=== PATIENT | male | born 1985 | race Caucasian/White ===

== ENCOUNTER 2018-04-28 20:20 | Emergency (ER) | payer OTHER ==
[~2018-04-28] VITALS: Ht 167.6 cm; Wt 81.1 kg
[2018-04-28 20:31] VITALS: BP 175/77
== END 2018-04-28 21:56 | disposition home or self-care (01) ==
LOC: ED 21:45
DX: K04.7 Periapical abscess without sinus (principal)
CPT/HCPCS: 99283

== ENCOUNTER 2019-01-15 18:05 | Emergency (ER) | payer OTHER ==
[~2019-01-15] VITALS: Ht 167.6 cm; Wt 78.5 kg
--- NOTE | 2019-01-15 18:31 | NUR ---
CONTACT WITH PT, 33 YR OLD MALE HERE WITH C/O "LEFT SIDE CHEST PRESSURE AND AT TIMES NEEDLES AND REALLY BAD CRAMPS" HAS BEEN INTERMITTENT FOR A COUPLE OF MONTHS. "TODAY WAS THE WORSE" HAS SOB WITH EPISODES. NOT ASSOCIATED WITH ACTIVITIES. PT PLACED ON MONITORS, SR PER MONITOR, AUTO BP AND PULSE OX IN PLACE.
[2019-01-15] MEDS ORDERED: GABA300C10 PO (18:37)
--- NOTE | 2019-01-15 19:13 | NUR ---
REPORT TO ANSHUL CUNNINGHAM
[2019-01-15 19:27] LABS: BASOPHILS # (AUTO) 0.03 x10^3/uL (0-0.1); BASOPHILS % (AUTO) 0 % (0-1); EOSINOPHILS # (AUTO) 0.18 x10^3/uL (0-0.4); EOSINOPHILS % (AUTO) 2 % (1-7); LYMPHOCYTES # (AUTO) 2.41 x10^3/uL (1-3.4); LYMPHOCYTES % (AUTO) 28 % (22-44); MD NO; MEAN CORPUSCULAR HEMOGLOBIN 30.2 pg (27.5-34.5); MEAN CORPUSCULAR HGB CONC 34.3 g/dL (33.2-36.2); MEAN CORPUSCULAR VOLUME 88.1 fL (81-97); MEAN PLATELET VOLUME 8.5 fL (7.4-10.4); MONOCYTES # (AUTO) 0.56 x10^3/uL (0.2-0.8); MONOCYTES % (AUTO) 7 % (2-9); NEUTROPHILS # (AUTO) 5.37 x10^3/uL (1.8-6.8); NEUTROPHILS % (AUTO) 63 % (42-75); PLATELET COUNT 300 x10^3/uL (130-400); RED BLOOD COUNT 5.11 x10^6/uL (4.38-5.82); RED CELL DISTRIBUTION WIDTH 12.8 % (9.4-14.8)
[2019-01-15 19:39] LABS: ALANINE AMINOTRANSFERASE 49 U/L (12-78); ALBUMIN 3.9 g/dL (3.4-5.0); ANION GAP 4 mmol/L (5-15); CALCIUM 8.7 mg/dL (8.5-10.1); CHLORIDE 110 mmol/L (98-107); CREATININE 1.14 mg/dL (0.7-1.3)
[2019-01-15 19:43] LABS: ALKALINE PHOSPHATASE 88 U/L (45-117); BILIRUBIN,TOTAL 0.2 mg/dL (0.2-1.0); TOTAL PROTEIN 6.6 g/dL (6.4-8.2); TROPONIN I < 0.015 ng/mL (0.000-0.045)
[2019-01-15 20:18] VITALS: BP 128/62
--- NOTE | 2019-01-15 20:24 | NUR ---
No immediate needs from pt. Awaiting results.
== END 2019-01-15 21:00 | disposition home or self-care (01) ==
LOC: ED 18:51
DX: R07.89 Other chest pain (principal); R42 Dizziness and giddiness; F17.210 Nicotine dependence, cigarettes, uncomplicated
CPT/HCPCS: 36415; 71045; 80053; 84484; 85025; 93005; 99284

== ENCOUNTER 2019-01-20 08:26 | Outpatient (CLI) | payer OTHER ==
[~2019-01-20 08:26] MED LIST: GABA300C10 PO
== END 2019-01-20 23:59 | disposition home or self-care (01) ==
LOC: CARD 08:26
PROVIDERS: ATTEND Family Medicine
DX: R07.9 Chest pain, unspecified (principal)
CPT/HCPCS: 93017

== ENCOUNTER 2019-03-11 17:14 | Emergency (ER) | payer OTHER ==
[~2019-03-11] VITALS: Ht 167.6 cm; Wt 80.0 kg
[2019-03-11] MEDS ORDERED: MORPHINE SULFATE 4 MG/ML, 1ML ONE (17:53)
[2019-03-11] MEDS ORDERED: ONDANSETRON 2MG/ML, 2ML ONE (17:54)
[2019-03-11] MEDS ORDERED: SODIUM CHLORIDE FLUSH 10ML SYR IVF ONE (18:00)
[2019-03-11] MEDS ORDERED: ONDANSETRON 2MG/ML, 2ML IVPush ONE (18:00)
[2019-03-11] MEDS ORDERED: MORPHINE SULFATE 4 MG/ML, 1ML IVPush PRN (18:00)
--- NOTE | 2019-03-11 18:17 | NUR ---
REPORT FROM OCTAVIO SCHAEFER. ASSUMED CARE OF PATIENT AT THIS TIME.
[2019-03-11] MEDS ORDERED: LIDOCAINE-MPF 1%, 5ML ONE ×2 (18:39→18:41)
--- NOTE | 2019-03-11 18:58 | NUR ---
MD AT BEDSIDE, KIM PROVIDED. PATIENT SITTING IN ESE JOSEPH. FAMILY AT BEDSIDE.
[2019-03-11] MEDS ORDERED: LIDOCAINE-MPF 2% ,5ML SQ ONE (19:00)
--- NOTE | 2019-03-11 19:52 | NUR ---
NAIL OUT, NEW ORDERS FOR AN XRAY. PATIENT SITTING IN GURNEY SPEAKING WITH FAMILY AT BEDSIDE, [id number].
--- NOTE | 2019-03-11 20:11 | NUR ---
PATIENT AMB WITH STEADY GAIT TO BATHROOM, PATIENT BACK TO BED, NADN.
--- NOTE | 2019-03-11 20:15 | NUR ---
EMT AT BEDSIDE FOR WOUND IRRIGATION. VS UPDATED IN CHART.
[2019-03-11 21:36] VITALS: BP 119/74
== END 2019-03-11 21:38 | disposition home or self-care (01) ==
LOC: ED 18:44
DX: S61.231A Puncture wound without foreign body of left index finger without damage to nail, initial encounter (principal); F17.200 Nicotine dependence, unspecified, uncomplicated; X58.XXXA Exposure to other specified factors, initial encounter; Y93.89 Activity, other specified; Y92.89 Other specified places as the place of occurrence of the external cause; Y99.8 Other external cause status
CPT/HCPCS: 12041; 73130; 73140; 96374; 96375; 99284; J2270; J2405